=== PATIENT | male | born 1955 | race Two or more races ===

== ENCOUNTER 2019-01-22 15:01 | Inpatient (IN) | payer SELFPAY ==
[~2019-01-22] VITALS: Ht 188 cm; Wt 95.2 kg
[2019-01-25 12:42] VITALS: BP 116/61
== END 2019-01-25 14:25 | disposition home or self-care (01) | DRG 309 ==
LOC: ED 17:27 → EDIP 17:45 → 5SO 19:04 → DCLOUNGE 01-25 14:05
PROVIDERS: ADMIT Internal Medicine; ATTEND Internal Medicine
DX: I48.0 Paroxysmal atrial fibrillation (principal); D68.59 Other primary thrombophilia; I47.2 Ventricular tachycardia; I42.9 Cardiomyopathy, unspecified; D64.9 Anemia, unspecified; E78.00 Pure hypercholesterolemia, unspecified; E78.5 Hyperlipidemia, unspecified; E86.0 Dehydration; I10 Essential (primary) hypertension; I49.1 Atrial premature depolarization; I49.3 Ventricular premature depolarization; E02 Subclinical iodine-deficiency hypothyroidism; R42 Dizziness and giddiness; I95.9 Hypotension, unspecified; K21.9 Gastro-esophageal reflux disease without esophagitis; Z79.899 Other long term (current) drug therapy; Z82.0 Family history of epilepsy and other diseases of the nervous system; Z87.891 Personal history of nicotine dependence
CPT/HCPCS: 36415; 71045; 78452; 80048; 80061; 80307; 81003; 82040; 83735; 84439; 84443; 84484; 85025; 93005; 93017; 93306; 99285; G0378; J1644; J2785; A9502; C9898; J0282; J3480; J7060